=== PATIENT | female | born 1940 | race African-American/Black ===

== ENCOUNTER 2018-01-03 07:53 | Inpatient (IN) | payer MEDICARE, MEDICAID ==
[~2018-01-03] VITALS: Ht 154.9 cm; Wt 59.9 kg
[~2018-01-03 07:53] MED LIST: AML; AMLODIPINE; ASA
[2018-01-03] MEDS ORDERED: HYDROCODONE/ACETAMINOPHEN 5/325MG TABLET PO STA (10:58)
[2018-01-03 11:45] LABS: BASOPHILS % 0.2 % (0.0-2.0); EOSINOPHILS % 0.2 % (0.0-5.0); HEMATOCRIT. 25.7 % (36.0-48.0); HEMOGLOBIN. 8.6 g/dL (12.0-16.0); LYMPHOCYTES % 11.3 % (20.0-50.0); MONOCYTES % 8.1 % (2.0-8.0); NEUTROPHILS % 80.2 % (40.0-76.0); PLATELET 236 x1000/uL (130-400); RED BLOOD CELL COUNT 2.85 mill/uL (4.2-5.4)
[2018-01-03 11:50] LABS: INR 1.1; PROTHROMBIN TIME 10.6 sec (9.1-11.1)
[2018-01-03 11:53] LABS: CHLORIDE 115 mEq/L (98-107)
[2018-01-03] MEDS ORDERED: ONDANSETRON HCL 4MG/2ML INJ IV PRN (19:30)
[2018-01-03] MEDS ORDERED: IPRATROPIUM/ALBUTEROL 0.5-3(2.5)MG/3ML NEB INH PRN (19:30)
[2018-01-03] MEDS ORDERED: ACETAMINOPHEN 650MG/20.3ML UDC GT PRN (19:30)
[2018-01-03] MEDS ORDERED: MAGNESIUM/ALUMINUM HYDROXIDE/SIMETHICONE 30ML UDC PO PRN (19:30)
[2018-01-03] MEDS ORDERED: ACETAMINOPHEN 325MG TABLET PO PRN (19:30)
[2018-01-03] MEDS ORDERED: CLONIDINE 0.1MG TABLET PO PRN (19:30)
[2018-01-03] MEDS ORDERED: NA PHOS,M-B/NA PHOS,DI-BA ENEMA 118ML PR PRN (19:30)
[2018-01-03] MEDS ORDERED: ACETAMINOPHEN 650MG SUPP PR PRN (19:30)
[2018-01-03] MEDS ORDERED: DOCUSATE SODIUM 100MG CAPSULE PO PRN (19:30)
[2018-01-03] MEDS ORDERED: DIPHENHYDRAMINE 50MG/ML VIAL IV PRN (19:30)
[2018-01-03] MEDS ORDERED: GUAIFENESIN 200MG/10ML SUGAR FREE UDC PO PRN (19:30)
[2018-01-03 20:00] VITALS: BP 112/56
[2018-01-03 20:08] VITALS: BP 112/56
[2018-01-03] MEDS ORDERED: CARV25TA47 PO (20:19)
[2018-01-03] MEDS ORDERED: CODE30TA2 PO (20:21)
[2018-01-03] MEDS ORDERED: VIT1TABL86 MT (20:21)
[2018-01-03] MEDS: DEXT 5%/0.45% NACL 1000ML 1,000 ML IV SCH (22:19)
[2018-01-03] MEDS: SODIUM CHLORIDE 0.9% INJ 3ML FLUSH IVF SCH (22:20)
[2018-01-03 23:53] LABS: CREATINE KINASE MB FRACTION 9.4 ng/mL (0.5-3.6)
[2018-01-04] VITALS: BP 124/60
[2018-01-04 04:00] VITALS: BP 137/68
[2018-01-04] MEDS: SODIUM CHLORIDE 0.9% INJ 3ML FLUSH IVF SCH ×3 (06:00→22:00)
[2018-01-04 06:22] LABS: BASOPHILS % 0.4 % (0.0-2.0); EOSINOPHILS % 2.6 % (0.0-5.0); HEMATOCRIT. 23.6 % (36.0-48.0); MEAN CORPUSCULAR HEMOGLOBIN 30.6 pg (28.0-32.0); MEAN CORPUSCULAR VOLUME 90.2 fL (81.0-99.0); MEAN PLATELET VOLUME 8.9 fl (7.4-10.4); MONOCYTES % 11.5 % (2.0-8.0); NEUTROPHILS % 67.5 % (40.0-76.0); PLATELET 204 x1000/uL (130-400); RED BLOOD CELL COUNT 2.62 mill/uL (4.2-5.4); RED CELL DISTRIBUTION WIDTH 16.2 % (11.6-14.6)
[2018-01-04 06:44] LABS: CHLORIDE 116 mEq/L (98-107)
[2018-01-04 06:58] LABS: CREATINE KINASE 1286 IU/L (26-192); CREATINE KINASE MB FRACTION 7.2 ng/mL (0.5-3.6); HDL CHOLESTEROL 56 mg/dL (40-59); LDL CHOLESTEROL 148 mg/dL (5-100)
[2018-01-04 08:00] VITALS: BP 124/67
[2018-01-04] MEDS: DEXT 5%/0.45% NACL 1000ML 1,000 ML IV SCH (08:48)
[2018-01-04 09:50] LABS: FOLIC ACID (FOLATE) SERUM 10.8 ng/mL (>5.38)
[2018-01-04 12:00] VITALS: BP 135/72
[2018-01-04 16:00] VITALS: BP 148/73
[2018-01-04 20:00] VITALS: BP 126/63
[2018-01-04 20:34] LABS: TOTAL IRON BINDING CAPACITY 190 ug/dL (250-450)
[2018-01-04 20:55] LABS: VITAMIN B12 SERUM 236 pg/mL (211-911)
[2018-01-05] VITALS: BP 142/85
[2018-01-05 04:00] VITALS: BP 139/91
[2018-01-05] MEDS: SODIUM CHLORIDE 0.9% INJ 3ML FLUSH IVF SCH ×3 (05:49→21:28)
[2018-01-05] MEDS: DEXT 5%/0.45% NACL 1000ML 1,000 ML IV SCH ×2 (05:49→21:28)
[2018-01-05 08:00] VITALS: BP 148/67
[2018-01-05 12:00] VITALS: BP 154/71
[2018-01-05] MEDS ORDERED: FERR236T3 MT (12:58)
[2018-01-05 16:09] LABS: BASOPHILS % 0.4 % (0.0-2.0); EOSINOPHILS % 3.9 % (0.0-5.0); HEMATOCRIT. 27.1 % (36.0-48.0); HEMOGLOBIN. 9.1 g/dL (12.0-16.0); LYMPHOCYTES % 18.8 % (20.0-50.0); MEAN CORPUSCULAR HEMOGLOBIN 30.1 pg (28.0-32.0); MONOCYTES % 10.6 % (2.0-8.0); NEUTROPHILS % 66.3 % (40.0-76.0); PLATELET 213 x1000/uL (130-400); RED BLOOD CELL COUNT 3.01 mill/uL (4.2-5.4); RED CELL DISTRIBUTION WIDTH 15.9 % (11.6-14.6)
[2018-01-05] MEDS ORDERED: FURO-152 MT (16:19)
[2018-01-05 16:27] LABS: CHLORIDE 109 mEq/L (98-107)
[2018-01-05 20:00] VITALS: BP 131/77
[2018-01-05 20:05] LABS: CLARITY URINE CLOUDY (CLEAR); COLOR URINE YELLOW (YELLOW); KETONES URINE NEGATIVE (NEGATIVE); LEUKOCYTE ESTERASE URINE 3+ (NEGATIVE); NITRITE URINE POSITIVE (NEGATIVE); OCCULT BLOOD URINE 1+ (NEGATIVE); PROTEIN URINE NEGATIVE (NEGATIVE); SPECIFIC GRAVITY URINE 1.015 (1.005-1.030)
[2018-01-05 23:02] VITALS: BP 139/83
[2018-01-06] VITALS: BP 154/77
[2018-01-06 04:00] VITALS: BP 154/77
[2018-01-06] MEDS: SODIUM CHLORIDE 0.9% INJ 3ML FLUSH IVF SCH (05:56)
[2018-01-06 08:00] VITALS: BP 154/82
[2018-01-06 08:35] VITALS: BP 141/85
== END 2018-01-06 11:45 | disposition home health service (06) | DRG 553 ==
LOC: ER 07:53 → 6EST 15:58 → ENRESERV 16:39 → 6EST 01-04 14:32
PROVIDERS: ADMIT Family Medicine; ATTEND Family Medicine
DX: M19.012 Primary osteoarthritis, left shoulder (principal); E43 Unspecified severe protein-calorie malnutrition; E87.1 Hypo-osmolality and hyponatremia; M62.82 Rhabdomyolysis; R29.6 Repeated falls; M17.0 Bilateral primary osteoarthritis of knee; M47.9 Spondylosis, unspecified; M16.0 Bilateral primary osteoarthritis of hip; D64.9 Anemia, unspecified; E87.6 Hypokalemia; N18.9 Chronic kidney disease, unspecified; I12.9 Hypertensive chronic kidney disease with stage 1 through stage 4 chronic kidney disease, or unspecified chronic kidney disease; E78.5 Hyperlipidemia, unspecified; G31.9 Degenerative disease of nervous system, unspecified; E86.0 Dehydration; Z91.81 History of falling; Z79.899 Other long term (current) drug therapy; Z68.24 Body mass index [BMI] 24.0-24.9, adult
CPT/HCPCS: 36415; 71045; 73030; 73552; 73562; 73630; 80061; 82550; 82553; 82607; 82746; 83036; 83540; 83550; 84443; 84484; 85018; 87077; 87186; 93005; 93970; 97162; 99285; J3490

== ENCOUNTER 2018-01-07 10:19 | Emergency (ER) | payer MEDICARE, MEDICAID ==
[~2018-01-07] VITALS: Ht 165.1 cm; Wt 76.0 kg
[~2018-01-07 10:19] MED LIST changes: +CARV25TA47 PO; +CODE30TA2 PO; +FERR236T3 MT; +FURO-152 MT; +VIT1TABL86 MT
[2018-01-07] MEDS ORDERED: HYDROCODONE/ACETAMINOPHEN 5/325MG TABLET PO ONE (11:45)
[2018-01-07] MEDS ORDERED: SODIUM CHLORIDE 0.9% 500 ML IV ONE ×2 (13:08→13:35)
[2018-01-07 13:22] LABS: BASOPHILS % 0.2 % (0.0-2.0); EOSINOPHILS % 0.7 % (0.0-5.0); HEMATOCRIT. 29.4 % (36.0-48.0); HEMOGLOBIN. 9.8 g/dL (12.0-16.0); LYMPHOCYTES % 13.2 % (20.0-50.0); MEAN CORPUSCULAR HEMOGLOBIN 29.9 pg (28.0-32.0); MEAN CORPUSCULAR VOLUME 90.2 fL (81.0-99.0); MEAN PLATELET VOLUME 8.8 fl (7.4-10.4); MONOCYTES % 7.7 % (2.0-8.0); NEUTROPHILS % 78.2 % (40.0-76.0); PLATELET 250 x1000/uL (130-400); RED BLOOD CELL COUNT 3.26 mill/uL (4.2-5.4); RED CELL DISTRIBUTION WIDTH 15.8 % (11.6-14.6)
[2018-01-07 13:27] LABS: CHLORIDE 108 mEq/L (98-107)
[2018-01-07 16:23] VITALS: BP 118/73
== END 2018-01-07 16:22 | disposition home or self-care (01) ==
LOC: ER 10:19 → CANBEDREQ 18:26
DX: M19.90 Unspecified osteoarthritis, unspecified site (principal); M25.562 Pain in left knee; M25.561 Pain in right knee; I10 Essential (primary) hypertension; R53.1 Weakness; Z79.899 Other long term (current) drug therapy
CPT/HCPCS: 36415; 51702; 71045; 73522; 73560; 73590; 73600; 80053; 83880; 84484; 85025; 93005; 99285; J7030

== ENCOUNTER → 2020-02-15 | Outpatient (CLI) | payer MEDICARE, MEDICAID ==
[~2020-02-15] MED LIST changes: -AMLODIPINE; +ATOR20TA65 PO; -CARV25TA47 PO; +COR12 MT; +LISI-604 MT
== END | disposition home or self-care (01) ==
LOC: LAB 13:49
PROVIDERS: ATTEND Specialist
DX: Z01.812 Encounter for preprocedural laboratory examination (principal); R05 Cough; Z20.828 Contact with and (suspected) exposure to other viral communicable diseases
CPT/HCPCS: 87426

== ENCOUNTER → 2020-02-17 | Day surgery (SDC) | payer MEDICARE, MEDICAID ==
[~2020-02-17] VITALS: Ht 160 cm; Wt 56.2 kg
[~2020-02-17] MED LIST changes: +ACETAMINOPHEN 325MG TABLET PO PRN; +ATROPINE SULFATE 1MG/10ML SYR IV PRN; +FENTANYL CITRATE/PF 50MCG/ML 2ML VIAL ONE; +IODIXANOL 320MG/ML 100 ML BOTTLE IV ONE; +LIDOCAINE HCL 1% 20ML VIAL (Pyxis) INJ ONE; +MIDAZOLAM HCL 2 MG/2 ML VIAL ONE; +NICARDIPINE 100MCG/ML 10ML VIAL (CATH LAB) IV ONE; +NITROGLYCERIN 50MCG/ML 10ML VIAL (CATH LAB) IV ONE; +ONDANSETRON HCL 4MG/2ML INJ IV PRN
== END | disposition home or self-care (01) ==
LOC: CCL 06:54
PROVIDERS: ATTEND Specialist
DX: R07.89 Other chest pain (principal); I25.10 Atherosclerotic heart disease of native coronary artery without angina pectoris; I10 Essential (primary) hypertension; E78.5 Hyperlipidemia, unspecified; Z79.899 Other long term (current) drug therapy; Z82.49 Family history of ischemic heart disease and other diseases of the circulatory system; Z98.890 Other specified postprocedural states
CPT/HCPCS: 93458; C1769; C1887; C1893; J1644; J2250; J3010; J3490; Q9967; 99152; 99153; G0500

== ENCOUNTER 2020-07-31 12:13 | Inpatient (IN) | payer MEDICARE, MEDICAID ==
[~2020-07-31] VITALS: Ht 157.5 cm; Wt 70.0 kg
[~2020-07-31 12:13] MED LIST changes: -ACETAMINOPHEN 325MG TABLET PO PRN; -ATROPINE SULFATE 1MG/10ML SYR IV PRN; -FENTANYL CITRATE/PF 50MCG/ML 2ML VIAL ONE; -IODIXANOL 320MG/ML 100 ML BOTTLE IV ONE; -LIDOCAINE HCL 1% 20ML VIAL (Pyxis) INJ ONE; -LISI-604 MT; +LISI20TA31 MT; -MIDAZOLAM HCL 2 MG/2 ML VIAL ONE; -NICARDIPINE 100MCG/ML 10ML VIAL (CATH LAB) IV ONE; -NITROGLYCERIN 50MCG/ML 10ML VIAL (CATH LAB) IV ONE; -ONDANSETRON HCL 4MG/2ML INJ IV PRN
[2020-07-31] MEDS ORDERED: FUROSEMIDE 40MG/4ML VIAL IV ONE (12:30)
[2020-07-31] MEDS ORDERED: ENALAPRIL 1.25MG/ML VIAL 1ML IV ONE (12:30)
[2020-07-31] MEDS ORDERED: NITROGLYCERIN OINT 1GM/INCH UDPKT TD ONE (12:30)
[2020-07-31 13:01] LABS: BASOPHILS % 0.6 % (0.0-2.0); EOSINOPHILS % 5.4 % (0.0-5.0); HEMATOCRIT. 30.1 % (36.0-48.0); HEMOGLOBIN. 10.1 g/dL (12.0-16.0); LYMPHOCYTES % 21.8 % (20.0-50.0); MEAN CORPUSCULAR HEMOGLOBIN 31.2 pg (28.0-32.0); MEAN CORPUSCULAR VOLUME 93.3 fL (81.0-99.0); MEAN PLATELET VOLUME 10.9 fl (7.4-10.4); MONOCYTES % 10.1 % (2.0-8.0); NEUTROPHILS % 62.1 % (40.0-76.0); PLATELET 163 x1000/uL (130-400); RED BLOOD CELL COUNT 3.23 mill/uL (4.2-5.4)
[2020-07-31] MEDS ORDERED: METHYLPREDNISOLONE SOD SUCC 125 MG/2 ML VIAL IV STA (13:08)
[2020-07-31] MEDS ORDERED: IPRATROPIUM BROMIDE (0.02%) 0.5MG/2.5ML NEB HHN STA (13:08)
[2020-07-31] MEDS ORDERED: ALBUTEROL (0.083%) 2.5MG/3ML NEB HHN STA (13:08)
[2020-07-31 13:11] LABS: CHLORIDE 114 mEq/L (98-107)
[2020-07-31 13:35] LABS: BG BASE EXCESS -1.6 mmol/L (-2.0-2.0); BG CARBOXYHEMOGLOBIN 0.3 % (0.5-1.5); BG DEOXYHEMOGLOBIN 3.1 % (0.0-5.0); BG FRACTION INSPIRED OXYGEN 21; BG HCO3 ACT 22.5 mmol/L (22.0-26.0); BG METHEMOGLOBIN 0.2 % (0.0-1.5); BG OXYGEN SATURATION 96.9 % (92.0-98.5); BG OXYHEMOGLOBIN 96.4 % (94.0-97.0); BG PCO2 35.7 mmHg (35.0-45.0); BG PH 7.417 (7.350-7.450); BG SAMPLE SITE RIGHT RADIAL; BG VENT MODE ROOM AIR
[2020-07-31] MEDS ORDERED: ONDANSETRON HCL 4MG/2ML INJ IV PRN (16:15)
[2020-07-31] MEDS ORDERED: ENOXAPARIN 40MG/0.4ML SYR SUBCUT SCH (16:15)
[2020-07-31] MEDS ORDERED: MAGNESIUM/ALUMINUM HYDROXIDE/SIMETHICONE 30ML UDC PO PRN (16:15)
[2020-07-31] MEDS ORDERED: ACETAMINOPHEN 325MG TABLET PO PRN (16:15)
[2020-07-31] MEDS ORDERED: DOCUSATE SODIUM 100MG CAPSULE PO PRN (16:15)
[2020-07-31] MEDS: ENOXAPARIN 30MG/0.3ML SYR SUBCUT SCH (16:30)
[2020-07-31] MEDS: LISINOPRIL 20MG TABLET PO SCH (16:42)
[2020-07-31] MEDS: CARVEDILOL 12.5MG TABLET PO SCH (17:54)
[2020-07-31 21:00] VITALS: BP 155/89
[2020-07-31] MEDS: ATORVASTATIN CALCIUM 20MG TABLET PO SCH (22:26)
[2020-08-01] VITALS: BP 155/63
[2020-08-01] MEDS: CLONIDINE 0.1MG TABLET PO PRN ×2 (03:49→21:24)
[2020-08-01 04:00] VITALS: BP 170/95
[2020-08-01 06:33] LABS: BASOPHILS % 0.1 % (0.0-2.0); HEMOGLOBIN. 9.9 g/dL (12.0-16.0); LYMPHOCYTES % 10.5 % (20.0-50.0); MEAN CORPUSCULAR HEMOGLOBIN 30.6 pg (28.0-32.0); MEAN CORPUSCULAR VOLUME 92.5 fL (81.0-99.0); MEAN PLATELET VOLUME 11.9 fl (7.4-10.4); MONOCYTES % 2.3 % (2.0-8.0); NEUTROPHILS % 87.1 % (40.0-76.0); PLATELET 149 x1000/uL (130-400); RED BLOOD CELL COUNT 3.24 mill/uL (4.2-5.4); RED CELL DISTRIBUTION WIDTH 15.6 % (11.6-14.6)
[2020-08-01 07:24] LABS: CHLORIDE 111 mEq/L (98-107)
[2020-08-01 07:34] LABS: LDL CHOLESTEROL 141 mg/dL (5-100)
[2020-08-01 07:35] LABS: HDL CHOLESTEROL 87 mg/dL (40-59)
[2020-08-01 08:17] VITALS: BP 163/86
[2020-08-01] MEDS ORDERED: FUROSEMIDE 40MG/4ML VIAL IV SCH (09:00)
[2020-08-01] MEDS: LISINOPRIL 20MG TABLET PO SCH (10:05)
[2020-08-01] MEDS: ASPIRIN 81MG EC TABLET PO SCH (10:05)
[2020-08-01] MEDS: CARVEDILOL 12.5MG TABLET PO SCH ×2 (10:06→18:04)
[2020-08-01] MEDS: ENOXAPARIN 30MG/0.3ML SYR SUBCUT SCH (10:06)
[2020-08-01] MEDS ORDERED: AMLODIPINE 5MG TABLET PO NR (11:08)
[2020-08-01 12:30] VITALS: BP 147/79
[2020-08-01] MEDS ORDERED: REGADENOSON 0.4 MG/5 ML IV NR (14:00)
[2020-08-01 16:13] VITALS: BP 150/89
[2020-08-01] MEDS: FUROSEMIDE 40MG/4ML VIAL IV SCH (18:04)
[2020-08-01 20:00] VITALS: BP 162/80
[2020-08-01] MEDS: ATORVASTATIN CALCIUM 20MG TABLET PO SCH (21:24)
[2020-08-02] VITALS: BP 143/51
[2020-08-02 04:00] VITALS: BP_SYST 149; BP_DIAS 55; BP_DIAS 74
[2020-08-02] MEDS: FUROSEMIDE 40MG/4ML VIAL IV SCH (06:45)
[2020-08-02 06:54] LABS: BASOPHILS % 0.3 % (0.0-2.0); HEMATOCRIT. 27.4 % (36.0-48.0); LYMPHOCYTES % 18.9 % (20.0-50.0); MEAN CORPUSCULAR VOLUME 91.8 fL (81.0-99.0); MEAN PLATELET VOLUME 11.4 fl (7.4-10.4); NEUTROPHILS % 70.8 % (40.0-76.0); PLATELET 150 x1000/uL (130-400); RED BLOOD CELL COUNT 2.99 mill/uL (4.2-5.4); RED CELL DISTRIBUTION WIDTH 16.1 % (11.6-14.6)
[2020-08-02 07:05] LABS: CHLORIDE 109 mEq/L (98-107)
[2020-08-02 08:00] VITALS: BP 147/88
[2020-08-02] MEDS: LISINOPRIL 20MG TABLET PO SCH (09:00)
[2020-08-02] MEDS: CARVEDILOL 12.5MG TABLET PO SCH ×2 (09:00→18:19)
[2020-08-02] MEDS: ENOXAPARIN 30MG/0.3ML SYR SUBCUT SCH (09:00)
[2020-08-02] MEDS: AMLODIPINE 5MG TABLET PO SCH ×2 (09:00→14:10)
[2020-08-02] MEDS: ASPIRIN 81MG EC TABLET PO SCH (09:00)
[2020-08-02] MEDS ORDERED: REGADENOSON 0.4 MG/5 ML IV ONE (11:01)
[2020-08-02] MEDS ORDERED: SODIUM CHLORIDE 0.9% 1,000 ML IV SCH (11:15)
[2020-08-02] MEDS ORDERED: SODIUM CHLORIDE 0.9% 500 ML IV NR (11:15)
[2020-08-02 12:17] VITALS: BP 146/68
[2020-08-02 16:40] VITALS: BP 119/61
[2020-08-02 20:00] VITALS: BP 148/72
[2020-08-02] MEDS ORDERED: ATORVASTATIN CALCIUM 40MG TABLET PO SCH (21:00)
[2020-08-03] VITALS: BP 105/63
[2020-08-03 04:00] VITALS: BP 142/67
[2020-08-03 07:50] VITALS: BP 148/75
[2020-08-03 07:50] LABS: BASOPHILS % 0.4 % (0.0-2.0); EOSINOPHILS % 2.4 % (0.0-5.0); LYMPHOCYTES % 21.3 % (20.0-50.0); MEAN CORPUSCULAR HEMOGLOBIN 30.8 pg (28.0-32.0); NEUTROPHILS % 64.9 % (40.0-76.0); PLATELET 161 x1000/uL (130-400); RED BLOOD CELL COUNT 3.26 mill/uL (4.2-5.4); RED CELL DISTRIBUTION WIDTH 15.7 % (11.6-14.6)
[2020-08-03] MEDS: ENOXAPARIN 30MG/0.3ML SYR SUBCUT SCH (09:33)
[2020-08-03] MEDS: ASPIRIN 81MG EC TABLET PO SCH (09:33)
[2020-08-03] MEDS: CARVEDILOL 12.5MG TABLET PO SCH (09:33)
[2020-08-03] MEDS: AMLODIPINE 5MG TABLET PO SCH (09:33)
[2020-08-03] MEDS: LISINOPRIL 20MG TABLET PO SCH (09:34)
[2020-08-03 11:12] VITALS: BP 125/54
[2020-08-03 13:42] VITALS: BP 125/54
[2020-08-03 15:44] VITALS: BP 117/61
== END 2020-08-03 15:59 | disposition home or self-care (01) | DRG 291 ==
LOC: ER 12:13 → 6WST 14:23 → ENRESERV 20:13
PROVIDERS: ADMIT Hospitalist; ATTEND Hospitalist
DX: I13.0 Hypertensive heart and chronic kidney disease with heart failure and stage 1 through stage 4 chronic kidney disease, or unspecified chronic kidney disease (principal); I50.33 Acute on chronic diastolic (congestive) heart failure; J96.00 Acute respiratory failure, unspecified whether with hypoxia or hypercapnia; D63.8 Anemia in other chronic diseases classified elsewhere; E78.5 Hyperlipidemia, unspecified; I25.10 Atherosclerotic heart disease of native coronary artery without angina pectoris; Z20.822 Contact with and (suspected) exposure to COVID-19; E11.22 Type 2 diabetes mellitus with diabetic chronic kidney disease; I08.0 Rheumatic disorders of both mitral and aortic valves; I27.20 Pulmonary hypertension, unspecified; N18.9 Chronic kidney disease, unspecified; I95.9 Hypotension, unspecified; Z82.49 Family history of ischemic heart disease and other diseases of the circulatory system; Z79.4 Long term (current) use of insulin; Z79.899 Other long term (current) drug therapy; R07.9 Chest pain, unspecified
CPT/HCPCS: 36415; 36600; 71045; 78452; 80048; 80053; 80061; 82375; 82805; 83880; 84484; 85025; 87426; 93005; 93017; 93306; 93970; 94640; 96374; 99291; A9500; J1650; J1940; J2785; J2930; J3490; J7030

== ENCOUNTER 2021-05-31 07:26 | Inpatient (IN) | payer MEDICARE, MEDICAID ==
[~2021-05-31] VITALS: Ht 157.5 cm; Wt 56.2 kg
[~2021-05-31 07:26] MED LIST changes: -ATOR20TA65 PO
[2021-05-31 07:54] LABS: CHLORIDE 111 mEq/L (98-107)
[2021-05-31 07:56] LABS: BASOPHILS % 0.4 % (0.0-2.0); HEMOGLOBIN. 8.9 g/dL (12.0-16.0); LYMPHOCYTES % 13.8 % (20.0-50.0); MEAN CORPUSCULAR HEMOGLOBIN 30.6 pg (28.0-32.0); MONOCYTES % 12.6 % (2.0-8.0); NEUTROPHILS % 67.2 % (40.0-76.0); PLATELET 180 x1000/uL (130-400); RED CELL DISTRIBUTION WIDTH 15.8 % (11.6-14.6)
[2021-05-31] MEDS ORDERED: ONDANSETRON HCL 4MG/2ML INJ IV PRN (15:00)
[2021-05-31] MEDS ORDERED: ACETAMINOPHEN 325MG TABLET PO PRN (15:00)
[2021-05-31] MEDS: CARVEDILOL 6.25 MG TABLET PO SCH (17:32)
[2021-05-31 20:00] VITALS: BP_SYST 147; BP_SYST 151; BP_DIAS 72; BP_DIAS 79
[2021-05-31] MEDS: AMLODIPINE 2.5MG TABLET PO SCH (20:34)
[2021-05-31 22:00] VITALS: BP 122/74
[2021-06-01] VITALS (12 sets, daily range): BP systolic 130–172; BP diastolic 62–91
[2021-06-01 07:23] LABS: BASOPHILS % 0.6 % (0.0-2.0); EOSINOPHILS % 7.2 % (0.0-5.0); HEMATOCRIT. 27.4 % (36.0-48.0); HEMOGLOBIN. 9.3 g/dL (12.0-16.0); LYMPHOCYTES % 18.9 % (20.0-50.0); MEAN CORPUSCULAR HEMOGLOBIN 31.4 pg (28.0-32.0); MEAN CORPUSCULAR VOLUME 92.9 fL (81.0-99.0); MEAN PLATELET VOLUME 10.3 fl (7.4-10.4); NEUTROPHILS % 60.3 % (40.0-76.0); PLATELET 168 x1000/uL (130-400); RED BLOOD CELL COUNT 2.95 mill/uL (4.2-5.4); RED CELL DISTRIBUTION WIDTH 15.8 % (11.6-14.6)
[2021-06-01 07:24] LABS: CHLORIDE 114 mEq/L (98-107)
[2021-06-01] MEDS ORDERED: FUROSEMIDE 40MG/4ML VIAL IVP SCH (09:00)
[2021-06-01] MEDS: POTASSIUM CHLORIDE 20MEQ TABLET SR PO SCH (09:38)
[2021-06-01] MEDS: AMLODIPINE 2.5MG TABLET PO SCH ×2 (09:38→21:13)
[2021-06-01] MEDS: CARVEDILOL 6.25 MG TABLET PO SCH ×2 (09:38→17:29)
[2021-06-01] MEDS: FUROSEMIDE 40MG/4ML VIAL IVP SCH (17:28)
[2021-06-01] MEDS ORDERED: FURO-151 MT (17:34)
[2021-06-02] VITALS (7 sets, daily range): BP systolic 130–157; BP diastolic 68–87
[2021-06-02 06:51] LABS: BASOPHILS % 0.7 % (0.0-2.0); EOSINOPHILS % 5.6 % (0.0-5.0); HEMATOCRIT. 25.3 % (36.0-48.0); HEMOGLOBIN. 8.6 g/dL (12.0-16.0); LYMPHOCYTES % 18.3 % (20.0-50.0); MEAN CORPUSCULAR VOLUME 91.3 fL (81.0-99.0); MEAN PLATELET VOLUME 10.4 fl (7.4-10.4); MONOCYTES % 10.5 % (2.0-8.0); NEUTROPHILS % 64.9 % (40.0-76.0); PLATELET 175 x1000/uL (130-400); RED BLOOD CELL COUNT 2.77 mill/uL (4.2-5.4); RED CELL DISTRIBUTION WIDTH 15.4 % (11.6-14.6)
[2021-06-02 07:07] LABS: CHLORIDE 108 mEq/L (98-107)
[2021-06-02] MEDS: POTASSIUM CHLORIDE 20MEQ TABLET SR PO SCH (08:21)
[2021-06-02] MEDS: FUROSEMIDE 40MG/4ML VIAL IVP SCH (08:21)
[2021-06-02] MEDS: CARVEDILOL 6.25 MG TABLET PO SCH (08:21)
[2021-06-02] MEDS: AMLODIPINE 2.5MG TABLET PO SCH (08:22)
== END 2021-06-02 14:00 | disposition home health service (06) | DRG 189 ==
LOC: ER 07:44 → MICUSO 12:10 → EDBEDREQ 12:13 → EDBEDREQTM 12:13 → EDBEDREQSVC 12:13 → 5EST 18:43
PROVIDERS: ADMIT Internal Medicine; ATTEND Internal Medicine
PROC: 5A09357 Assistance with Respiratory Ventilation, Less than 24 Consecutive Hours, Continuous Positive Airway Pressure (ICD-10-PCS; principal; 2021-05-31)
DX: J96.00 Acute respiratory failure, unspecified whether with hypoxia or hypercapnia (principal); I50.33 Acute on chronic diastolic (congestive) heart failure; N17.9 Acute kidney failure, unspecified; I11.0 Hypertensive heart disease with heart failure; D64.9 Anemia, unspecified; E78.5 Hyperlipidemia, unspecified; E87.8 Other disorders of electrolyte and fluid balance, not elsewhere classified; I27.20 Pulmonary hypertension, unspecified; Z20.822 Contact with and (suspected) exposure to COVID-19; I25.10 Atherosclerotic heart disease of native coronary artery without angina pectoris; I25.2 Old myocardial infarction
CPT/HCPCS: 36415; 71045; 80048; 80053; 83880; 84484; 85025; 87426; 93005; 94660; 97162; 99291; J1940